=== PATIENT | female | born 1965 | race Caucasian/White ===

== ENCOUNTER → 2024-01-24 | Outpatient (CLI) | payer OTHER ==
[2024-01-24 09:02] LABS: HEMATOCRIT 46.4 % (37.0-47.0); HEMOGLOBIN 14.5 g/dL (12.5-16.0); MEAN PLATELET VOLUME 9.2 fl (7.4-10.4); RED BLOOD COUNT 5.13 M/mm3 (4.10-5.30); RED CELL DISTRIBUTION WIDTH 12.7 % (11.5-14.5); WHITE BLOOD COUNT 5.9 K/mm3 (4.8-10.8)
[2024-01-24 09:09] LABS: ALBUMIN 4.6 g/dL (3.5-5.0)
[2024-01-24 09:10] LABS: CALCIUM 9.9 mg/dL (8.3-10.5)
[2024-01-24 09:13] LABS: TOTAL BILIRUBIN 0.3 mg/dL (0.2-1.2)
[2024-01-24 23:35] LABS: HEPATITIS C VIRUS ANTIBODY Negative (Nonreactiv)
== END ==
LOC: LAB 08:46
PROVIDERS: Family Medicine
DX: Z13.220 Encounter for screening for lipoid disorders (principal); Z13.1 Encounter for screening for diabetes mellitus; Z11.4 Encounter for screening for human immunodeficiency virus [HIV]; Z11.59 Encounter for screening for other viral diseases; R03.0 Elevated blood-pressure reading, without diagnosis of hypertension